=== PATIENT | male | born 1965 | race African-American/Black ===

== ENCOUNTER 2016-06-25 13:47 | Emergency (ER) | payer OTHER ==
[~2016-06-25] VITALS: Ht 188 cm; Wt 80.0 kg
[~2016-06-25 13:47] MED LIST: CYCL-36 PO; IBUP800 PO
[2016-06-25 13:48] VITALS: BP 173/102; PULSE 101; RESP 16; TEMP 98.6; O2SAT 99
--- NOTE | 2016-06-25 14:37 | PD ---
HPI Chief Complaint: Injury Time Seen by Provider: 14:37 Travel History International Travel<30 days: No Contact w/Intl Traveler<30days: No Traveled to known affect area: No History of Present Illness HPI 50-year-old male presents to the emergency Department with complaint of right shoulder pain after falling "a few feet" from a ladder in a tree earlier today. The patient arrived via EMS. He denies hitting his head or loss of consciousness. Points to right lateral neck and upper shoulder when asked where the pain is. Denies paresthesias, loss of sensation, decreased range of motion, decreased strength to bilateral upper extremities. Has been ambulatory since after the fall. Denies chest pain, shortness breath, abdominal pain. Denies nausea, vomiting. Has not taken any medications or tried any joints to alleviate his symptoms. Pain is aggravated with movement of his neck to the right and movement of the shoulder. Denies anticoagulants. Denies significant past medical history. No known allergies. No other modifying factors or associated signs and symptoms. PFSH Past Medical History Medical History: Denies Significant Hx Diminished Hearing: No Pneumonia: Yes Social History Alcohol Use: No Tobacco Use: No Substance Use: No Allergies-Medications (Allergen,Severity, Reaction): Coded Allergies: No Known Allergies (Verified , 06/25/16) Reported Meds & Prescriptions Reported Meds & Active Scripts Active Ibuprofen 800 Mg Tab 800 Mg PO Q6HR PRN Flexeril (Cyclobenzaprine HCl) 10 Mg Tab 10 Mg PO TID PRN Review of Systems Except as stated in HPI: all other systems reviewed are Neg Physical Exam Narrative GENERAL: Well-nourished, well-developed [place] male patient, in no acute distress; disheveled SKIN: Warm and dry. HEAD: Atraumatic. Normocephalic. No facial or scalp abrasions or lacerations noted. EYES: Pupils equal and round at 3 mm with brisk reaction. No scleral icterus. No injection or drainage. No raccoon eyes. ENT: Mucosa pink and moist. No erythema or exudates. No uvular edema. No uvular , palatal, or tonsillar deviation. Airway patent. Nares without nasal blood, purulent drainage or septal hematoma. No rhinorrhea. EARS: Bilateral pinnae and external canals appear within normal limits. Bilateral tympanic membranes without erythema, dullness, hemotympanum or perforation. No otorrhea. No garcía signs. NECK: Trachea midline. No lymphadenopathy. Active rotation of the neck greater than 45 left and right. No midline point tenderness on palpation of the cervical spine. Reproducible tenderness to the right lateral neck and down to the right upper shoulder over the trapezius muscle. No obvious deformities. CHEST: No retractions or use of accessory muscles. CARDIOVASCULAR: Regular rate and rhythm. No murmur appreciated. RESPIRATORY: No accessory muscle use. Clear to auscultation. Breath sounds equal bilaterally. GASTROINTESTINAL: Abdomen soft, non-tender, nondistended. Hepatic and splenic margins not palpable. Bowel sounds are active 4 quadrants. MUSCULOSKELETAL: Right shoulder with full range of motion and greater than 45 abduction; without tenderness on palpation; without erythema or edema; no obvious deformities. Shoulders equal. Reports to me supple and non-tense with 2+ radial pulses and sensory intact without erythema or edema; with full range of motion and strength. No obvious deformities. No clubbing. No cyanosis. No edema. BACK: No midline Point tenderness on palpation of the lumbar or thoracic spine. No obvious deformities. Patient sitting up in bed at 90. NEUROLOGICAL: Awake and alert. Oriented 3. No obvious cranial nerve deficits. Motor grossly within normal limits. Normal speech. Moves all extremities. 5/5 strength to all extremities. Sensory intact. PSYCHIATRIC: Appropriate mood and affect; insight and judgment normal. Data Data Last Documented VS Vital Signs Date Time Temp Pulse Resp B/P Pulse Ox O2 Delivery O2 Flow Rate FiO2 06/25/16 15:20 71 18 189/98 98 Room Air 06/25/16 13:48 98.6 Orders Ketorolac Inj (Toradol Inj) (06/25/16 14:45) Orphenadrine Inj (Norflex Inj) (06/25/16 14:45) MDM Medical Decision Making Medical Screen Exam Complete: Yes Emergency Medical Condition: Yes Medical Record Reviewed: Yes Differential Diagnosis Trapezius muscle strain, cervical strain, muscle spasm, fall Narrative Course 50-year-old male physical exam consistent with right trapezius muscle strain and muscle spasms after falling a few feet from a ladder that was in a tree. He arrived via EMS. Denies hitting his head or loss of consciousness. Denies nausea, vomiting. On physical exam the patient is without raccoon eyes, garcía signs, rhinorrhea, or hemotympanum. I do not suspect open or depressed skull fracture, and the patient has no signs of basilar skull fracture. [place] CT Head Injury Rule suggests a head CT is not necessary for this patient and clears the patient for head injury without imaging. Patient has reproducible right lateral neck pain on physical exam. Golden C-Spine Rule suggests the C- Spine can be cleared clinically of fracture, and imaging is not required. There is no midline point tenderness on palpation of the cervical spine. The patient is able to actively rotate the neck 45 left and right. The patient is sitting up in bed at 90. The patient is ambulatory. Right shoulder joint is stable and I do not suspect fracture, dislocation, joint separation and feel that imaging is not necessary at this time. Toradol and Norflex administered in ER. Ibuprofen and Flexeril prescribed for home. Patient is medically cleared and stable for discharge. Discussed reasons to return to the emergency department. Instructed patient to follow up with primary care provider. Patient agrees with treatment plan. The patients vital signs are stable and the patient is stable for outpatient follow-up and treatment. Patient discharged home, stable and in no acute distress. Diagnosis Primary Impression: Strain of right trapezius muscle Qualified Code: S46.811A - Strain of right trapezius muscle, initial encounter Additional Impression: Trapezius muscle spasm Referrals: Primary Care Physician Patient Instructions: Fall Prevention (ED), General Instructions, Muscle Spasm (ED), Muscle Strain (ED) Additional Instructions: Tylenol or ibuprofen as directed and as needed for pain Robaxin as prescribed and as needed for muscle spasms Heating pad and/or ice to affected area to reduce pain Avoid aggravating activities; increase activity as tolerated Follow-up with primary care provider Return to emergency department immediately with worsening of symptoms Med/Other Pt SpecificInfo: Prescription(s) given Scripts Ibuprofen 800 Mg [id number] Mg PO Q6HR PRN (PAIN) #30 TAB Ref 0 Prov:Robyn Steele 06/25/16 Cyclobenzaprine (Flexeril)10 Mg Tab10 Mg PO TID PRN (MUSCLE SPASM) #30 TAB Ref 0 Prov:Robyn Steele 06/25/16 Disposition: 01 DISCHARGE HOME Condition: Stable Robyn Steele Jun 25, 2016 14:37
[2016-06-25] MEDS ORDERED: IBUP800T23 PO (14:42)
[2016-06-25] MEDS ORDERED: CYCL1TAB29 PO (14:42)
[2016-06-25] MEDS ORDERED: ORPHENADRINE INJ 60 MG/2 ML AMP IM ONE (14:45)
[2016-06-25] MEDS ORDERED: KETOROLAC TROMETHAMINE 60 MG/2 ML (IM) VIAL IM ONE (14:45)
[2016-06-25 15:20] VITALS: BP 189/98; PULSE 71; RESP 18; O2SAT 98
== END 2016-06-25 16:25 | disposition home or self-care (01) ==
LOC: NEPB 13:47
DX: S46.811A Strain of other muscles, fascia and tendons at shoulder and upper arm level, right arm, initial encounter (principal); M62.838 Other muscle spasm; Z87.01 Personal history of pneumonia (recurrent); W11.XXXA Fall on and from ladder, initial encounter
CPT/HCPCS: 96372; 99284; J1885; J2360

== ENCOUNTER 2017-01-22 22:24 | Emergency (ER) | payer OTHER ==
[~2017-01-22] VITALS: Ht 188 cm; Wt 80.0 kg
[~2017-01-22 22:24] MED LIST changes: -CYCL-36 PO; +CYCL1TAB29 PO; -IBUP800 PO; +IBUP800T23 PO
[2017-01-22] MEDS ORDERED: IOHEXOL 350 MG/ML 10 ML VIAL (for RAD DIAG) IVCONTRAST ONE (22:25)
[2017-01-22 22:32] VITALS: BP 128/95; PULSE 100; RESP 16; TEMP 98.5; O2SAT 95
[2017-01-22 22:43] VITALS: BP 128/78; PULSE 87; RESP 18; TEMP 98.5; O2SAT 95
[2017-01-22] MEDS ORDERED: TETANUS/DIPHTHERIA TOXOID ADULT 0.5 ML VIAL IM ONE (23:00)
--- NOTE | 2017-01-22 23:22 | PD ---
HPI Chief Complaint: Back/ Neck Pain or Injury Time Seen by Provider: 22:45 Travel History International Travel<30 days: No Contact w/Intl Traveler<30days: No Traveled to known affect area: No History of Present Illness HPI 51yo M presents to the ED with c/o right shoulder pain, pelvic pain, right knee pain s/p fall from tree at 1pm today. 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 He states that he falls from trees a lot and knows how to fall so only overt signs of injury is an abrasion on his right knee. Denies any head trauma, LOC, neck pain, chest pain, sob, n/v, abdominal pain, focal weakness or numbness. Pt states that he drank alcohol afterwards to help with the pain. PFSH Past Medical History Diminished Hearing: No Pneumonia: Yes Social History Alcohol Use: No Tobacco Use: No Substance Use: No Allergies-Medications (Allergen,Severity, Reaction): Coded Allergies: No Known Allergies (Verified , 01/22/17) Reported Meds & Prescriptions Reported Meds & Active Scripts Active No Active Prescriptions or Reported Medications Review of Systems Except as stated in HPI: all other systems reviewed are Neg Physical Exam Narrative GENERAL: 51yo M not in distress. SKIN: Focused skin assessment warm/dry. HEAD: Atraumatic. Normocephalic. EYES: Pupils equal and round. No scleral icterus. No injection or drainage. ENT: No nasal bleeding or discharge. Mucous membranes pink and moist. NECK: No midline cervical spine tenderness to palpation. CARDIOVASCULAR: Regular rate and rhythm. No murmur appreciated. RESPIRATORY: No accessory muscle use. Clear to auscultation. Breath sounds equal bilaterally. GASTROINTESTINAL: Abdomen soft, non-tender, nondistended. No rebound tenderness or guarding. MUSCULOSKELETAL: +TTP right scapula. +TTP right shoulder. Sensation intact. Distal pulses intact. Right knee: +Abrasion with mild ttp. No deformities. Sensation intact. Distal pulses intact. BACK: No midline ttp thoracic or lumbar spine. NEUROLOGICAL: Awake and alert. No obvious cranial nerve deficits. Motor grossly within normal limits. Normal speech. PSYCHIATRIC: Appropriate mood and affect; insight and judgment normal. Data Data Last Documented VS Vital Signs Date Time Temp Pulse Resp B/P (MAP) Pulse Ox O2 Delivery O2 Flow Rate FiO2 01/22/17 22:43 98.5 87 18 128/78 (95) 95 Room Air Orders Orders Ct Brain W/O Iv Contrast(Rout) (01/22/17 ) Ct Cerv Spine W/O Contrast (01/22/17 ) Ct Thorax/ Chest W Iv Contrast (01/22/17 ) Ct Abd/Pel W Iv Contrast(Rout) (01/22/17 ) Shoulder, Limited(2vws) (01/22/17 ) Knee, Ltd (1 Or 2vws) (01/22/17 ) Complete Blood Count With Diff (01/22/17 22:58) Basic Metabolic Panel (Bmp) (01/22/17 22:58) Prothrombin Time / Inr (Pt) (01/22/17 22:58) Act Partial Throm Time (Ptt) (01/22/17 22:58) Alcohol (Ethanol) (01/22/17 22:58) Tetanus/Diphtheria Tox Adult (Tetanus/Di (01/22/17 23:00) Iohexol 350 Inj (Omnipaque 350 Inj) (01/22/17 22:25) Labs Laboratory Tests Test 01/22/17 23:15 White Blood Count 4.2 TH/MM3 Red Blood Count 3.38 MIL/MM3 Hemoglobin 10.8 GM/DL Hematocrit 33.4 % Mean Corpuscular Volume 98.8 FL Mean Corpuscular Hemoglobin 31.8 PG Mean Corpuscular Hemoglobin Concent 32.2 % Red Cell Distribution Width 13.4 % Platelet Count 257 TH/MM3 Mean Platelet Volume 7.7 FL Neutrophils (%) (Auto) 42.5 % Lymphocytes (%) (Auto) 41.5 % Monocytes (%) (Auto) 12.4 % Eosinophils (%) (Auto) 2.2 % Basophils (%) (Auto) 1.4 % Neutrophils # (Auto) 1.8 TH/MM3 Lymphocytes # (Auto) 1.7 TH/MM3 Monocytes # (Auto) 0.5 TH/MM3 Eosinophils # (Auto) 0.1 TH/MM3 Basophils # (Auto) 0.1 TH/MM3 CBC Comment DIFF FINAL Differential Comment Prothrombin Time 9.9 SEC Prothromb Time International Ratio 0.9 RATIO Activated Partial Thromboplast Time 27.3 SEC Blood Urea Nitrogen 7 MG/DL Creatinine 0.82 MG/DL Random Glucose 78 MG/DL Calcium Level 8.4 MG/DL Sodium Level 142 MEQ/L Potassium Level 4.1 MEQ/L Chloride Level 108 MEQ/L Carbon Dioxide Level 26.2 MEQ/L Anion Gap 8 MEQ/L Estimat Glomerular Filtration Rate 119 ML/MIN Ethyl Alcohol Level 289 MG/DL [facility] Medical Decision Making Medical Screen Exam Complete: Yes Emergency Medical Condition: Yes Differential Diagnosis Fracture vs. contusion vs. alcohol intoxication vs. intraabdominal or intrathoracic injuries Narrative Course 51yo well appearing male here stating he fell 30 feet from a tree at 1pm today. However, his presentation and injuries do not match what he said happened. However, pt has alcohol on breath and do not feel that he is reliable. Labs reviewed, no leukocytosis. BMP unremarkable. Blood alcohol 289. Xray right shoulder negative. Xray right knee negative. CT brain negative. CT cspine showed no acute findings. Stable disc protrusion at C4-5. CT chest showed no acute traumatic injury. No PTX. CT a/p negative for acute traumatic injury within the abdomen and pelvis. Pt given tetanus and acetaminophen. Return precautions given. VS stable. Diagnosis Primary Impression: Alcohol intoxication Qualified Codes: F10.920 - Alcohol use, unspecified with intoxication, uncomplicated Patient Instructions: General Instructions Departure Forms: Tests/Procedures Additional Instructions: Please follow up with your primary care physician in 3-7 days. Return precautions given. Med/Other Pt SpecificInfo: Prescription(s) given Scripts Acetaminophen (Tylenol) 325 Mg Tab 650 MG PO Q6H Y for PAIN SCALE 1 TO 4 for 5 Days, TAB 0 Refills Prov: Aury Rascon 01/23/17 Disposition: 01 DISCHARGE HOME Condition: Stable Aury Rascon DO Jan 22, 2017 23:22
[2017-01-22 23:47] LABS: AUTOMATED NEUTROPHIL # 1.8 TH/MM3 (1.8-7.7); BASOPHIL # 0.1 TH/MM3 (0-0.2); BASOPHIL % 1.4 % (0.0-2.0); EOSINOPHIL # 0.1 TH/MM3 (0-0.4); EOSINOPHIL % 2.2 % (0.0-4.0); HEMATOCRIT 33.4 % (39.0-51.0); HEMO FLAGS DIFF FINAL; LYMPH % 41.5 % (9.0-44.0); LYMPHOCYTE # 1.7 TH/MM3 (1.0-4.8); MEAN CELL VOLUME 98.8 FL (80.0-100.0); MEAN CORPUSCULAR HEMOGLOBIN 31.8 PG (27.0-34.0); MEAN CORPUSCULAR HGB CONC 32.2 % (32.0-36.0); MONO % 12.4 % (0.0-8.0); NEUT % 42.5 % (16.0-70.0); PLATELET COUNT 257 TH/MM3 (150-450); RED BLOOD COUNT 3.38 MIL/MM3 (4.50-5.90); RED CELL DISTRIBUTION WIDTH 13.4 % (11.6-17.2); WHITE BLOOD COUNT 4.2 TH/MM3 (4.0-11.0)
[2017-01-22 23:54] LABS: APTT (PATIENT) 27.3 SEC (24.3-30.1); INTERNATIONAL NORMALIZED RATIO 0.9 RATIO; PROTHROMBIN TIME - PATIENT 9.9 SEC (9.8-11.6)
[2017-01-23 00:02] LABS: BICARBONATE 26.2 MEQ/L (21.0-32.0); POTASSIUM 4.1 MEQ/L (3.5-5.1)
--- NOTE | 2017-01-23 00:08 | RADRPT ---
EXAM DATE/TIME: 01/22/2017 23:36 [facility] COMPARISON: No previous studies available for comparison. INDICATIONS : Right shoulder pain from a fall out of a tree. MEDICAL HISTORY : None. SURGICAL HISTORY : None. ENCOUNTER: Initial ACUITY: 1 day PAIN SCORE: 5/10 LOCATION: Right Shoulder FINDINGS: Two view examination of the right shoulder demonstrates no evidence of fracture or dislocation. The glenohumeral and acromioclavicular joints are maintained. Bony mineralization is normal. CONCLUSION: Normal examination for a patient of this age. Javier Shen MD on January 23, 2017 at 0:06 Board Certified Radiologist. This report was verified electronically.
--- NOTE | 2017-01-23 00:09 | RADRPT ---
EXAM DATE/TIME: 01/22/2017 23:36 [facility] COMPARISON: No previous studies available for comparison. INDICATIONS : Right knee pain from a fall out of a tree. MEDICAL HISTORY : None. SURGICAL HISTORY : None. ENCOUNTER: Initial ACUITY: 1 day PAIN SCORE: 5/10 LOCATION: Right knee FINDINGS: Two view examination of the right knee demonstrates no evidence of fracture or dislocation. Bony min eralization is normal. The suprapatellar soft tissues have a normal configuration. CONCLUSION: Normal examination for a patient of this age. Javier Shen MD on January 23, 2017 at 0:07 Board Certified Radiologist. This report was verified electronically.
--- NOTE | 2017-01-23 00:53 | RADRPT ---
EXAM DATE/TIME: 01/23/2017 00:22 [facility] COMPARISON: CT BRAIN W/O CONTRAST, October 08, 2013, 18:35. INDICATIONS : Trauma, Patient states he fell out of a tree. RADIATION DOSE: 56.35 CTDIvol (mGy) MEDICAL HISTORY : None SURGICAL HISTORY : None. ENCOUNTER: Initial ACUITY: 1 day PAIN SCALE: 0/10 LOCATION: cranial TECHNIQUE: Multiple contiguous axial images were obtained of the head. Using automated exposure control and adj ustment of the mA and/or kV according to patient size, radiation dose was kept as low as reasonably a chievable to obtain optimal diagnostic quality images. DICOM format image data is available electro nically for review and comparison. FINDINGS: CEREBRUM: The ventricles are normal for age. No evidence of midline shift, mass lesion, hemorrhage or acute in farction. No extra-axial fluid collections are seen. POSTERIOR FOSSA: The cerebellum and brainstem are intact. The 4th ventricle is midline. The cerebellopontine angle i s unremarkable. EXTRACRANIAL: The visualized portion of the orbits is intact. SKULL: The calvaria is intact. No evidence of skull fracture. CONCLUSION: 1. No acute intracranial abnormalities. Javier Shen MD on January 23, 2017 at 0:50 Board Certified Radiologist. This report was verified electronically.
--- NOTE | 2017-01-23 00:58 | RADRPT ---
EXAM DATE/TIME: 01/23/2017 00:25 [facility] COMPARISON: CT CERVICAL SPINE W/O CONTRAST, October 08, 2013, 18:35. INDICATIONS : Trauma, Patient states he fell out of a tree. RADIATION DOSE: 37.19 CTDIvol (mGy) MEDICAL HISTORY : None SURGICAL HISTORY : None. ENCOUNTER: Initial ACUITY: 1 day PAIN SCALE: 0/10 LOCATION: neck TECHNIQUE: Volumetric scanning of the cervical spine was performed. Multiplanar reconstructions in the sagittal, coronal and oblique axial planes were performed. Using automated exposure control and adjustment o f the mA and/or kV according to patient size, radiation dose was kept as low as reasonably achievable to obtain optimal diagnostic quality images. DICOM format image data is available electronically f or review and comparison. FINDINGS: No acute fracture or spondylolisthesis. Moderate size central disc protrusion present at C4-5 resulti ng in mild to moderate canal stenosis, similar to 2014. Disc bulges at C3-4 and C6-7 are relatively s table. No prevertebral soft tissue swelling. Normal alignment. CONCLUSION: 1. No acute findings. Stable disc protrusion at C4-5 compared with 2013 resulting in moderate canal s tenosis. Javier Shen MD on January 23, 2017 at 0:52 Board Certified Radiologist. This report was verified electronically.
--- NOTE | 2017-01-23 01:01 | RADRPT ---
EXAM DATE/TIME: 01/23/2017 00:31 [facility] COMPARISON: No previous studies available for comparison. INDICATIONS : Trauma, Patient states he fell out of a tree. IV CONTRAST: 75 cc Omnipaque 350 (iohexol) IV ; Cumulative dose for multiple exams. RADIATION DOSE: CTDIvol (mGy) ; Combined studies - Thorax/Abdomen/Pelvis MEDICAL HISTORY : None SURGICAL HISTORY : None. ENCOUNTER: Initial ACUITY: 1 day PAIN SCALE: 5/10 LOCATION: chest TECHNIQUE: Volumetric scanning of the chest was performed. Using automated exposure control and adjustment of t he mA and/or kV according to patient size, radiation dose was kept as low as reasonably achievable to obtain optimal diagnostic quality images. DICOM format image data is available electronically for review and comparison. Follow-up recommendations for detected pulmonary nodules are based at a minimum on nodule size and pa tient risk factors according to Fleischner Society Guidelines. FINDINGS: There is dependent atelectasis in both lungs and a calcified granuloma left lower lobe. No significan t pleural or pericardial effusion. Mild coronary calcifications. Cardiomegaly. No acute findings in t he upper abdomen. No pneumothorax. Negative for traumatic aortic injury. CONCLUSION: 1. No acute traumatic injury identified within the thorax. Dependent atelectasis in both lungs. No pn eumothorax. Javier Shen MD on January 23, 2017 at 0:56 Board Certified Radiologist. This report was verified electronically.
--- NOTE | 2017-01-23 01:03 | RADRPT ---
EXAM DATE/TIME: 01/23/2017 00:33 [facility] COMPARISON: No previous studies available for comparison. INDICATIONS : Trauma, patient states he fell out of a tree. IV CONTRAST: 75 cc Omnipaque 350 (iohexol) IV ; Cumulative dose for multiple exams. ORAL CONTRAST: No oral contrast ingested. RADIATION DOSE: CTDIvol (mGy) ; Combined studies - Thorax/Abdomen/Pelvis MEDICAL HISTORY : None SURGICAL HISTORY : None. ENCOUNTER: Initial ACUITY: 1 day PAIN SCALE: 0/10 LOCATION: All quadrants. TECHNIQUE: Volumetric scanning of the abdomen and pelvis was performed. Using automated exposure control and ad justment of the mA and/or kV according to patient size, radiation dose was kept as low as reasonably achievable to obtain optimal diagnostic quality images. DICOM format image data is available electro nically for review and comparison. FINDINGS: There is dependent atelectasis at the lung bases. Calcified granuloma left lower lobe. There is mild fatty liver. Spleen, adrenals, kidneys and pancreas unremarkable. No free fluid or free air. No bowel obstruction. No acute bony abnormalities. CONCLUSION: 1. Negative for acute traumatic injury within the abdomen and pelvis. Javier Shen MD on January 23, 2017 at 1:00 Board Certified Radiologist. This report was verified electronically.
[2017-01-23] MEDS ORDERED: TYLE325T PO (01:12)
[2017-01-23] MEDS ORDERED: ACETAMINOPHEN 325 MG TAB PO ONE (01:15)
[2017-01-23 01:29] VITALS: BP 152/95; PULSE 86; RESP 16; O2SAT 99
[2017-01-23 05:00] VITALS: BP 150/90; PULSE 74; RESP 18; O2SAT 96
== END 2017-01-23 06:52 | disposition home or self-care (01) ==
LOC: NEPD 22:24
DX: F10.129 Alcohol abuse with intoxication, unspecified (principal); R10.2 Pelvic and perineal pain; M25.511 Pain in right shoulder; M25.561 Pain in right knee; Y90.8 Blood alcohol level of 240 mg/100 ml or more; W14.XXXA Fall from tree, initial encounter; Z23 Encounter for immunization
CPT/HCPCS: 70450; 71260; 72125; 73030; 73560; 74177; 80048; 80307; 85025; 85610; 85730; 90471; 90714; 99285; Q9967

== ENCOUNTER 2017-02-15 19:39 | Emergency (ER) | payer OTHER ==
[~2017-02-15] VITALS: Ht 188 cm; Wt 81.0 kg
[~2017-02-15 19:39] MED LIST changes: -CYCL1TAB29 PO; -IBUP800T23 PO; +TYLE325T PO
[2017-02-15 19:50] VITALS: BP 125/84; PULSE 82; RESP 16; TEMP 98.4; O2SAT 99
--- NOTE | 2017-02-15 20:49 | PD ---
HPI Chief Complaint: Fall Time Seen by Provider: 20:48 Travel History International Travel<30 days: No Contact w/Intl Traveler<30days: No Traveled to known affect area: No History of Present Illness HPI 51-year-old male presents to emergency department for evaluation left ankle pain. Patient states he fell off a trailer and rolled over his left ankle, experienced immediate pain. States he is ambulatory but it has been painful. Denies any alterations in sensation. States pain is exacerbated with movement. No other symptoms to report. PFSH Past Medical History Diabetes: No Diminished Hearing: No Immunizations Current: Yes Pneumonia: Yes (HX) Tetanus Vaccination: < 5 Years Influenza Vaccination: Yes Social History Alcohol Use: No Tobacco Use: No Substance Use: No Allergies-Medications (Allergen,Severity, Reaction): Coded Allergies: No Known Allergies (Verified , 02/15/17) Reported Meds & Prescriptions Reported Meds & Active Scripts Active Ibuprofen 600 Mg Tab 600 Mg PO Q8HR PRN Tylenol (Acetaminophen) 325 Mg Tab 650 Mg PO Q6H PRN 5 Days Review of Systems Except as stated in HPI: all other systems reviewed are Neg Physical Exam Narrative GENERAL: Well-nourished, well-developed male patient, in no acute distress SKIN: Focused skin assessment warm/dry. HEAD: Normocephalic. EYES: No scleral icterus. No injection or drainage. NECK: Supple, trachea midline. No JVD or lymphadenopathy. CARDIOVASCULAR: Regular rate and rhythm without murmurs, gallops, or rubs. RESPIRATORY: Breath sounds equal bilaterally. No accessory muscle use. EXTREMITY: The left ankle is swollen and tender over the lateral aspect but the skin is intact and there is no ligamentous instability. There is no deformity. The foot and toes are warm and well-perfused. Sensation to pain and light touch is intact. Data Data Last Documented VS Vital Signs Date Time Temp Pulse Resp B/P (MAP) Pulse Ox O2 Delivery O2 Flow Rate FiO2 02/15/17 22:25 02/15/17 19:50 98.4 82 16 99 Room Air Orders Orders Ankle, Complete ([id number]) (02/15/17 ) Ibuprofen (Motrin) (02/15/17 21:00) Splint Or Brace Apply/Monitor (02/15/17 21:39) Brace Ankle Stirrup (02/15/17 ) [facility] Medical Decision Making Medical Screen Exam Complete: Yes Emergency Medical Condition: Yes Medical Record Reviewed: Yes Differential Diagnosis Ankle SPRAIN versus fracture versus contusion versus dislocation Narrative Course 51-year-old male presents to emergency department for evaluation of left ankle pain. Last Impressions Ankle X-Ray 02/15/17 0000 Signed Impressions: Service Date/Time: Wednesday, February 15, 2017 21:04 - CONCLUSION: Chronic findings as above. No acute fracture or subluxation seen of the left ankle. Yuval Pinedo MD Patient is placed in a splint and provided crutches. He is encouraged to follow -up with primary care provider and return immediately with any acute worsening of symptoms Diagnosis Primary Impression: Ankle sprain Qualified Codes: S93.402A - Sprain of unspecified ligament of left ankle, initial encounter Referrals: Primary Care Physician Patient Instructions: Ankle Sprain Exercises (GEN), General Instructions Additional Instructions: Brace for support Ice and elevate to reduce pain and swelling Follow-up with primary care provider Return immediately with any acute worsening symptoms Med/Other Pt SpecificInfo: Prescription(s) given Scripts Ibuprofen (Ibuprofen) 600 Mg Tab 600 MG PO Q8HR Y for PAIN, #30 TAB 0 Refills Prov: Jess Mendieta 02/15/17 Disposition: 01 DISCHARGE HOME Condition: Stable Jess Mendieta Feb 15, 2017 20:49
[2017-02-15] MEDS ORDERED: IBUPROFEN 600 MG TAB PO ONE (21:00)
--- NOTE | 2017-02-15 21:31 | RADRPT ---
EXAM DATE/TIME: 02/15/2017 21:04 [facility] COMPARISON: ANKLE LEFT COMPLETE ([id number]), January 20, 2016, 21:29. INDICATIONS : Patient complains of left ankle pain status post fall. MEDICAL HISTORY : None. SURGICAL HISTORY : Lt calcaneous ORIF. ENCOUNTER: Initial ACUITY: 2 days PAIN SCORE: 7/10 LOCATION: Left Ankle FINDINGS: No acute fracture or subluxation seen of the left ankle. There is an old, healed calcaneal fracture s tatus post screw fixation. Chronic appearing hypertrophic bone seen distal to the tip the lateral mal leolus. No perceptible soft-tissue swelling. A small heel spur is again noted. CONCLUSION: Chronic findings as above. No acute fracture or subluxation seen of the left ankle. Yuval Pinedo MD on February 15, 2017 at 21:28 Board Certified Radiologist. This report was verified electronically.
[2017-02-15] MEDS ORDERED: IBUP-232 PO (21:41)
== END 2017-02-15 22:27 | disposition home or self-care (01) ==
LOC: NEPD 19:39
DX: S93.402A Sprain of unspecified ligament of left ankle, initial encounter (principal); X50.1XXA Overexertion from prolonged static or awkward postures, initial encounter
CPT/HCPCS: 73610; 99283; L1906

== ENCOUNTER 2017-02-27 20:56 | Emergency (ER) | payer SELFPAY ==
[~2017-02-27] VITALS: Ht 188 cm; Wt 88.0 kg
[~2017-02-27 20:56] MED LIST changes: +IBUP-232 PO
[2017-02-27 21:04] VITALS: BP 123/74; PULSE 87; RESP 15; TEMP 98.1; O2SAT 98
--- NOTE | 2017-02-27 22:46 | PD ---
HPI Chief Complaint: Injury Time Seen by Provider: 22:38 Travel History International Travel<30 days: No Contact w/Intl Traveler<30days: No Traveled to known affect area: No History of Present Illness HPI 51-year-old male here for evaluation of left foot and ankle pain after a poorly dropping a log onto his foot yesterday. The patient was wearing sneakers when this happened. He has been able to bear weight, however it is painful to do so. He became concerned today because the top of his foot and left great toe started turning black and blue. He denies any other injuries. Pain is moderate , constant, worse with palpation, movement, and weightbearing. PFSH Past Medical History Diabetes: No Diminished Hearing: No Immunizations Current: Yes Pneumonia: Yes (HX) Social History Alcohol Use: No Tobacco Use: No Substance Use: No Allergies-Medications (Allergen,Severity, Reaction): Coded Allergies: No Known Allergies (Verified , 02/27/17) Reported Meds & Prescriptions Reported Meds & Active Scripts Active Ibuprofen 600 Mg Tab 600 Mg PO Q8HR PRN Tylenol (Acetaminophen) 325 Mg Tab 650 Mg PO Q6H PRN 5 Days Review of Systems Except as stated in HPI: all other systems reviewed are Neg Physical Exam Narrative GENERAL: Well-developed, well-nourished, comfortable, no apparent distress. SKIN: Dorsum of left foot with ecchymosis. Left great toe with ecchymosis. Left great toe with superficial abrasion with a dry scab, no active bleeding, no surrounding warmth or erythema. HEAD: Atraumatic. Normocephalic. EYES: Pupils equal and round. No scleral icterus. No injection or drainage. CARDIOVASCULAR: Regular rate and rhythm. Bilateral dorsalis pedis pulses are brisk and equal. RESPIRATORY: No accessory muscle use. MUSCULOSKELETAL: Left foot and ankle with moderate edema without obvious bony deformity with skin exam as above. All compartments in the left lower extremity are supple. NEUROLOGICAL: Awake and alert. No obvious cranial nerve deficits. Motor grossly within normal limits. Normal speech. PSYCHIATRIC: Appropriate mood and affect; insight and judgment normal. Data Data Last Documented VS Vital Signs Date Time Temp Pulse Resp B/P (MAP) Pulse Ox O2 Delivery O2 Flow Rate FiO2 02/27/17 21:04 98.1 87 15 123/74 (90) 98 Room Air Orders Orders Foot, Complete ([id number]) (02/27/17 ) Ankle, Complete ([id number]) (02/27/17 ) MDM Medical Decision Making Medical Screen Exam Complete: Yes Emergency Medical Condition: Yes Differential Diagnosis Left foot/ankle fracture versus contusion Narrative Course Vitals are within normal limits. Left foot x-ray: Previous fixation of calcaneal fractures. No acute fractures. Left ankle x-ray: Remote calcaneal fractures with screw fixation. No acute fractures. Patient made aware of all findings. He does of ecchymosis to his left foot and toes. All compartments in the left lower extremity are soft. He is able to ambulate and states that he has crutches at home. I advised ibuprofen, rest, ice, compression, and elevation. PMD follow-up this week. He was informed on when to return to the emergency department. He verbalizes understanding and agreement with plan. Diagnosis Primary Impression: Contusion of left foot Qualified Codes: S90.32XA - Contusion of left foot, initial encounter Referrals: [facility] 3 days Additional Instructions: Follow-up with a primary care physician this week. Return to the emergency department for worsening symptoms or any other concerns. Disposition: 01 DISCHARGE HOME Condition: Stable Pb Lacey MD Feb 27, 2017 22:46
--- NOTE | 2017-02-27 23:15 | RADRPT ---
EXAM DATE/TIME: 02/27/2017 22:52 [facility] COMPARISON: ANKLE LEFT COMPLETE ([id number]), February 15, 2017, 21:04. INDICATIONS : left ankle pain, log fell on foot MEDICAL HISTORY : None. SURGICAL HISTORY : Left heel pinning ENCOUNTER: Initial ACUITY: 2 days PAIN SCORE: 1/10 LOCATION: Left Ankle FINDINGS: Three view exam was performed of the left ankle. There is previous calcaneal fracture with screw fix ation and some pes planus deformity. No acute fracture identified. 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 CONCLUSION: 1. Remote calcaneal fractures with screw fixation. No acute findings. Javier Shen MD on February 27, 2017 at 23:08 Board Certified Radiologist. This report was verified electronically.
--- NOTE | 2017-02-27 23:18 | RADRPT ---
EXAM DATE/TIME: 02/27/2017 22:53 [facility] COMPARISON: FOOT LEFT COMPLETE ([id number]), January 20, 2016, 21:31. INDICATIONS : Left distal foot pain, log fell on foot MEDICAL HISTORY : None. SURGICAL HISTORY : Left heel pinning ENCOUNTER: Initial ACUITY: 2 days PAIN SCORE: 10/10 LOCATION: Left Foot FINDINGS: Three view examination of the left foot demonstrates previous screw fixation of multiple calcaneal fr actures. Pes planus. Degenerative change of the left foot. No acute bony abnormality. CONCLUSION: 1. Previous fixation of calcaneal fractures. No acute fracture. Javier Shen MD on February 27, 2017 at 23:13 Board Certified Radiologist. This report was verified electronically.
== END 2017-02-27 23:40 | disposition home or self-care (01) ==
LOC: NEPD 20:56
DX: S90.32XA Contusion of left foot, initial encounter (principal); W20.8XXA Other cause of strike by thrown, projected or falling object, initial encounter; Y93.9 Activity, unspecified; Y92.9 Unspecified place or not applicable
CPT/HCPCS: 73610; 73630; 99283